=== PATIENT | female | born 1945 | race Caucasian/White ===

== ENCOUNTER 2018-01-09 13:15 | Emergency (ER) | payer MEDICARE, OTHER ==
[~2018-01-09] VITALS: Ht 170.2 cm; Wt 78.0 kg
[2018-01-09 13:35] VITALS: BP 143/62; PULSE 86; RESP 18; O2SAT 97
[2018-01-09] MEDS ORDERED: TETANUS/DIPHTHERIA TOXOID ADULT 0.5 ML VIAL IM ONE (13:45)
[2018-01-09] MEDS ORDERED: MULTTAB67 PO (13:46)
[2018-01-09] MEDS ORDERED: LISI-515 PO (13:46)
[2018-01-09] MEDS ORDERED: CYAN1TAB24 (13:46)
[2018-01-09] MEDS ORDERED: LEVE500T8 PO (13:46)
[2018-01-09] MEDS ORDERED: ASPI-516 CHEW (13:46)
[2018-01-09] MEDS ORDERED: CHOL10008 (13:46)
--- NOTE | 2018-01-09 14:36 | PD ---
HPI Chief Complaint: Fall Time Seen by Provider: 13:37 Travel History International Travel<30 days: No Contact w/Intl Traveler<30days: No Traveled to known affect area: No History of Present Illness HPI 72-year-old female with history of developmental delay, hypertension presents to the ED via EMS after mechanical fall. Patient states that she was attempting to get up using her walker when the wheeled walker slid out in front of her. She states that she fell forward, striking her face on the ground. She denies loss of consciousness. This was witnessed by her sister. The patient endorses chipping a tooth or possibly losing a crown in the accident. On presentation the patient denies headache, dizziness, vision changes, chest pain, palpitations, shortness of breath, neck pain, numbness, tingling, weakness , limitations range of motion, abdominal pain, nausea, vomiting, back pain. She has been ambulatory since the accident. She is unsure the date of her last tetanus immunization. I offered the patient pain medications, she declined at this time. PFSH Past Medical History Hypertension: Yes ?: Not Social History Alcohol Use: No Tobacco Use: No Substance Use: No Allergies-Medications (Allergen,Severity, Reaction): Coded Allergies: No Known Allergies (Unverified , 01/09/18) Reported Meds & Prescriptions Reported Meds & Active Scripts Active Magic Mouthwash Adult Liq (Multi-Ingredient Mouthwash/Gargle) 120 Ml Susp 5 Ml SWISH-SWAL ACHS Each 5mL contains: Nystatin 200,000units, Diphenhydramine 4.25mg, Viscous Lidocaine 10mg, Mtz syrup 0.8 mL Reported Multiple Vitamin 1 Tab 1 Tab PO DAILY Vitamin D3 (Cholecalciferol) 1,000 Unit Cap 0 BID Aspirin 81 Mg Chew 81 Mg CHEW DAILY B12 (Cyanocobalamin) 1,000 Mcg Tab Lisinopril 20 Mg Tab 20 Mg PO DAILY Levetiracetam 500 Mg Tab 500 Mg PO BID Review of Systems Except as stated in HPI: all other systems reviewed are Neg Physical Exam Narrative GENERAL: Well-nourished white female in no acute distress. Sitting up on the stretcher, alert, oriented, in no acute distress. SKIN: Warm and dry. Multiple abrasions including the forehead, nose, upper lip , chin, left wrist, right molina noted. Thorough evaluation reveals no other edema, ecchymosis, or laceration of the skin. HEAD: Normocephalic. Atraumatic. No raccoon eyes or singh sign. No tenderness to palpation of the skull. No bony step-offs. No signs of septal hematoma. No malocclusion of the teeth. Appears that there is a crown missing from tooth 8. Tooth 9 is broken. No exposure of the pulp. EYES: No scleral icterus. No injection or drainage. PERRLA. EOMI. ENT: Pearly wilkinson tympanic membranes bilaterally. Nasal mucosa is moist. Oropharynx without erythema, edema or exudate. NECK: Supple, trachea midline. No JVD or lymphadenopathy. No midline tenderness to palpation. Patient retains full, active, painless range of motion of the neck. CARDIOVASCULAR: Regular rate and rhythm without murmurs, gallops, or rubs. 2+ DP and radial pulses bilaterally. RESPIRATORY: Breath sounds clear and equal bilaterally. No accessory muscle use. GASTROINTESTINAL: Abdomen soft, non-tender, nondistended. + Bowel sounds MUSCULOSKELETAL: No cyanosis, or edema. No pain elicited with pelvic rocking. Patient has externally rotated lower extremities bilaterally at baseline. No tenderness to palpation or limitations to range of motion of the joints of the upper and lower extremities bilaterally. NEUROLOGICAL: Awake and alert. Cranial nerves II through XII intact. Motor and sensory grossly within normal limits. 5/5 muscle strength in all muscle groups. Slightly slurred speech. Normal per patient and sister at bedside. BACK: Nontender without obvious deformity. No CVA tenderness. No midline tenderness. Data Data Last Documented VS Vital Signs Date Time Temp Pulse Resp B/P (MAP) Pulse Ox O2 Delivery O2 Flow Rate FiO2 01/09/18 16:26 01/09/18 13:35 86 18 97 Room Air Orders Orders Ct Brain W/O Iv Contrast(Rout) (01/09/18 13:37) Ct Cerv Spine W/O Contrast (01/09/18 13:37) Ct Facial Bones W/O Iv Cont (01/09/18 13:37) Tetanus/Diphtheria Tox Adult (Tetanus/Di (01/09/18 13:45) Ed Discharge Order (01/09/18 16:10) [facility] Medical Decision Making Medical Screen Exam Complete: Yes Emergency Medical Condition: Yes Differential Diagnosis Mechanical fall versus abrasion versus contusion versus skull fracture versus cervical subluxation versus facial fracture versus tooth avulsion versus dental fracture versus other Narrative Course 72-year-old female with history of developmental delay, hypertension presents to the ED via EMS after mechanical fall. Witnessed by her sister. No loss of consciousness. On arrival patient is alert and oriented 4. She is able to provide a detailed history. Physical exam reveals no focal neuro deficits. Patient does have several skin tears and abrasions. She has a fracture of the tooth #9 and tooth #8 looks like she lost a cap or crown. It was otherwise reassuring. I offered the patient pain medications. She declines at this time. CT of the head, cervical spine and facial bones reveals no acute abnormality. Patient's wounds were cleaned and dressed. Discussed the results of the workup with the patient and her family at bedside. I instructed the patient to follow-up with the dentist for further evaluation. Patient states that she lives in [place] and will be returning home in a few days. She is provided a bottle of Magic mouthwash, instructed to use this should dental pain occur. She can use over the counter pain medications and ice packs as needed for aches and pains. We discussed reasons to return to the ED. She indicated understanding the instructions and is agreeable to care plan. The patient stable discharged home. Diagnosis Primary Impression: Fall from standing Qualified Codes: W19.XXXA - Unspecified fall, initial encounter Additional Impressions: Abrasion, multiple sites Immunization, tetanus-diphtheria Dental trauma Qualified Codes: S09.93XA - Unspecified injury of face, initial encounter Referrals: Primary Care Physician Additional Instructions: Rest, hydrate. Return to normal, gentle activity as tolerated. Keep your wounds clean and dry. Wash the wounds once a day and apply a thin layer of antibiotic ointment. Monitor for signs of infection such as increased redness, warmth, discharge. Follow-up with the dentist upon return home for evaluation of your dental injuries. Follow with the primary care provider. Return to the ED for any urgent or emergent medical condition. Med/Other Pt SpecificInfo: Prescription(s) given Scripts Wjjdgwuk-Ejcaqkzffnvffrg-Eqbjdqteh Liq (Magic Mouthwash Adult Liq) 120 Ml Susp 5 ML SWISH-SWAL ACHS for Mouth sores, #120 ML 0 Refills Each 5mL contains: Nystatin 200,000units, Diphenhydramine 4.25mg, Viscous Lidocaine 10mg, Mtz syrup 0.8 mL Prov: Bret Escamilla MD 01/09/18 Disposition: 01 DISCHARGE HOME Condition: Stable Ann Martinez Jan 09, 2018 14:36
--- NOTE | 2018-01-09 15:20 | RADRPT ---
EXAM DATE: 01/09/2018 2:21 PM EDT AGE/SEX: 72 years / Female INDICATIONS: FALL TODAY CLINICAL DATA: This is the patient's initial encounter. Patient reports that signs and symptoms have been present for 1 day and indicates a pain score of 0/10. MEDICAL/SURGICAL HISTORY: Hypertension. None. RADIATION DOSE: 36.15 CTDI (mGy) COMPARISON: No prior exams available for comparison. TECHNIQUE: CT of the head without contrast. Using automated exposure control and adjustment of the mA and/or kV according to patient size, radiation dose was kept as low as reasonably achievable to ob tain optimal diagnostic quality images. DICOM format image data is available electronically for revi ew and comparison. FINDINGS: Cerebrum: There is evidence of encephalomalacia at the left parietal lobe with expansion of the post erior aspect of the left lateral ventricle. There also appears to be some atrophy and septal malacia at the left frontal lobe. There is some hyperostosis of the inner table of the left frontal bone like ly in response to this. This is consistent with chronic change. There is shift of the midline structu res towards the left secondary to the volume loss. The right cerebral hemisphere appears normal. No a cute areas of hemorrhage or mass effect are seen. There is no evidence of acute mass effect or hemorr alona or infarction. No extraaxial fluid collections are seen. Posterior Fossa: There appears to be atrophy of the cerebellum with widening of the folds. Extracranial: The visualized portion of the orbits is intact. Skull: The calvaria is intact. No evidence of skull fracture. CONCLUSION: 1. No acute abnormality is seen. 2. Chronic change in the left cerebral hemisphere with areas of encephalomalacia at the parietal and frontal lobes with volume loss resulting of shift of the midline towards the left side. 3. Cerebellar atrophy. Electronically signed by: Codey Neumann MD 01/09/2018 3:18 PM EDT
--- NOTE | 2018-01-09 15:24 | RADRPT ---
EXAM DATE: 01/09/2018 2:28 PM EDT AGE/SEX: 72 years / Female INDICATIONS: FALL TODAY CLINICAL DATA: This is the patient's initial encounter. Patient reports that signs and symptoms have been present for 1 day and indicates a pain score of 0/10. MEDICAL/SURGICAL HISTORY: Hypertension. None. RADIATION DOSE: 22.76 CTDI (mGy) COMPARISON: No prior exams available for comparison. TECHNIQUE: Contiguous axial images were obtained using helical multirow detector technique. The vol umetric data was post-processed with multiplanar reconstruction in oblique axial, sagittal, and coron al planes. Using automated exposure control and adjustment of the mA and/or kV according to patient s ize, radiation dose was kept as low as reasonably achievable to obtain optimal diagnostic quality hunter ges. DICOM format image data is available electronically for review and comparison. FINDINGS: Vertebrae: Normal vertebral body height. Alignment: Normal. No subluxation. C2-3: There is a mild central disc protrusion causing a mild impression on the thecal sac. The bony spinal canal is normal in size. The neural foramina are bilaterally patent. There is left facet hype rtrophy. C3-4: The bony spinal canal is normal in size. No evidence of disc bulge or herniation. The neural foramina are bilaterally patent. There is bilateral facet hypertrophy being worse on the left. C4-5: The bony spinal canal is normal in size. No evidence of disc bulge or herniation. The neural foramina are bilaterally patent. There is bilateral facet hypertrophy being worse on the right. C5-6: The bony spinal canal is normal in size. No evidence of disc bulge or herniation. The neural foramina are bilaterally patent.There is bilateral facet hypertrophy being worse on the right. C6-7: The bony spinal canal is normal in size. No evidence of disc bulge or herniation. The neural foramina are bilaterally patent. There is mild facet hypertrophy. C7-T1: The bony spinal canal is normal in size. No evidence of disc bulge or herniation. The neura l foramina are bilaterally patent. There is mild facet hypertrophy. CONCLUSION: 1. No acute abnormality seen. 2. Degenerative change of the facet joints as described above. Electronically signed by: Codey Neumann MD 01/09/2018 3:23 PM EDT
[2018-01-09] MEDS ORDERED: MAGICADU2 SWISH-SWAL (15:58)
--- NOTE | 2018-01-09 15:58 | RADRPT ---
EXAM DATE: 01/09/2018 3:45 PM EDT AGE/SEX: 72 years / Female INDICATIONS: FALL TODAY CLINICAL DATA: This is the patient's initial encounter. Patient reports that signs and symptoms have been present for 1 day and indicates a pain score of 0/10. MEDICAL/SURGICAL HISTORY: Hypertension. None. RADIATION DOSE: 22.76 CTDI (mGy) COMPARISON: No prior exams available for comparison. TECHNIQUE: Contiguous images in the axial and coronal planes were obtained using helical multirow de tector technique. Using automated exposure control and adjustment of the mA and/or kV according to p atient size, radiation dose was kept as low as reasonably achievable to obtain optimal diagnostic josette lity images. DICOM format image data is available electronically for review and comparison. FINDINGS: There is some motion blurring. Orbits: The orbital and infraorbital osseous structures are intact. The retroconal structures have a normal configuration. No radiopaque foreign bodies are seen. Nasal Bone: The nasal bone and maxillary spine are intact. Zygomatic Arches: Symmetric without evidence of fracture. Sinuses: There is a lucency seen at the anterior right maxillary bone. This resembles a fracture how ever there is no fluid in the maxillary sinus or surrounding soft tissue swelling. It could be a vasc ular groove. The maxillary, ethmoid, and frontal sinuses are intact. No air-fluid levels seen. Nasal Cavity: The nasal septum is intact and midline. The lacrimal ducts are intact. Soft Tissues: No radiopaque foreign bodies seen. No soft-tissue swelling is seen. Intracranial: No intracranial air seen. Cribriform Plate: Grossly intact. CONCLUSION: 1. Linear lucency at the anterior right maxillary bone likely related to a vascular groove given the lack of other findings to suggest a fracture including soft tissue swelling or fluid in the sinus. 2. Otherwise negative facial CT examination. Electronically signed by: Codey Neumann MD 01/09/2018 3:57 PM EDT
== END 2018-01-09 16:25 | disposition home or self-care (01) ==
LOC: NEPD 13:15
DX: S09.93XA Unspecified injury of face, initial encounter (principal); S00.81XA Abrasion of other part of head, initial encounter; S00.31XA Abrasion of nose, initial encounter; S00.511A Abrasion of lip, initial encounter; S60.812A Abrasion of left wrist, initial encounter; S80.811A Abrasion, right lower leg, initial encounter; R62.50 Unspecified lack of expected normal physiological development in childhood; I10 Essential (primary) hypertension; Z79.899 Other long term (current) drug therapy; Z79.82 Long term (current) use of aspirin; Z23 Encounter for immunization; W18.30XA Fall on same level, unspecified, initial encounter; Y93.01 Activity, walking, marching and hiking
CPT/HCPCS: 70450; 70486; 72125; 90471; 90714